=== PATIENT | male | born 1995 | race African-American/Black ===

== ENCOUNTER 2020-10-27 10:28 | Emergency (ER) | payer MEDICAID ==
[~2020-10-27] VITALS: Ht 175.3 cm; Wt 55.0 kg
[2020-10-27] MEDS ORDERED: ONDANSETRON HCL 4MG/2ML INJ IV STA (10:43)
[2020-10-27] MEDS ORDERED: MORPHINE SULFATE 4 MG/ML CPJ (NOT FOR IM USE) IV STA (10:43)
[2020-10-27 11:13] LABS: CLARITY URINE CLEAR (CLEAR); COLOR URINE DARK YELLOW (YELLOW); HEMATOCRIT. 54.9 % (42.0-52.0); HEMOGLOBIN. 18.8 g/dL (14.0-18.0); KETONES URINE 1+ (NEGATIVE); LEUKOCYTE ESTERASE URINE 1+ (NEGATIVE); MEAN CORPUSCULAR HEMOGLOBIN 32.4 pg (28.0-32.0); MEAN CORPUSCULAR VOLUME 94.5 fL (80.0-94.0); MEAN PLATELET VOLUME 9.9 fl (7.4-10.4); NITRITE URINE NEGATIVE (NEGATIVE); OCCULT BLOOD URINE NEGATIVE (NEGATIVE); PLATELET 170 x1000/uL (130-400); PROTEIN URINE 1+ (NEGATIVE); RED BLOOD CELL COUNT 5.81 mill/uL (4.7-6.1); RED CELL DISTRIBUTION WIDTH 13.1 % (11.6-14.6); SPECIFIC GRAVITY URINE 1.036 (1.005-1.030)
[2020-10-27 11:19] LABS: CHLORIDE 103 mEq/L (98-107)
[2020-10-27 11:25] LABS: INR 1.1; PROTHROMBIN TIME 11.7 sec (9.6-11.0)
[2020-10-27 11:52] LABS: PLATELET ESTIMATE NORMAL
[2020-10-27] MEDS ORDERED: ONDA4TAB5 MT (12:06)
[2020-10-27] MEDS ORDERED: NITR100C MT (12:06)
[2020-10-27] MEDS ORDERED: TOPUD MT (12:06)
[2020-10-27 12:22] VITALS: BP 125/79
== END 2020-10-27 12:27 | disposition home or self-care (01) ==
LOC: ER 10:38
DX: N39.0 Urinary tract infection, site not specified (principal)
CPT/HCPCS: 36415; 74176; 80053; 81003; 83690; 85025; 85610; 93005; 96374; 96375; 99285; J2270; J2405

== ENCOUNTER 2021-01-10 15:46 | Inpatient (IN) | payer MEDICAID, OTHER ==
[~2021-01-10] VITALS: Ht 180.3 cm; Wt 65.8 kg
[2021-01-10] MEDS ORDERED: HALOPERIDOL LACTATE 5MG/ML VIAL IM ONE ×3 (16:15→22:30)
[2021-01-10] MEDS ORDERED: SODIUM CHLORIDE 0.9% 1,000 ML IV ONE ×2 (16:15→22:30)
[2021-01-10] MEDS ORDERED: MORPHINE SULFATE 2 MG/ML CPJ (NOT FOR IM USE) IV ONE (16:15)
[2021-01-10 16:41] LABS: CHLORIDE 108 mEq/L (98-107)
[2021-01-10 17:16] LABS: BASOPHILS % 0.7 % (0.0-2.0); EOSINOPHILS % 0.1 % (0.0-5.0); HEMOGLOBIN. 18.2 g/dL (14.0-18.0); LYMPHOCYTES % 19.5 % (20.0-50.0); MEAN CORPUSCULAR VOLUME 95.2 fL (80.0-94.0); MEAN PLATELET VOLUME 10.5 fl (7.4-10.4); MONOCYTES % 9.1 % (2.0-8.0); NEUTROPHILS % 70.6 % (40.0-76.0); PLATELET 170 x1000/uL (130-400); RED BLOOD CELL COUNT 5.36 mill/uL (4.7-6.1); RED CELL DISTRIBUTION WIDTH 13.1 % (11.6-14.6)
[2021-01-10] MEDS ORDERED: METOCLOPRAMIDE HCL 10MG TABLET PO ONE (18:30)
[2021-01-10] MEDS ORDERED: MORPHINE SULFATE 4 MG/ML CPJ (NOT FOR IM USE) IV ONE (22:30)
[2021-01-11 11:19] VITALS: BP 121/63
[2021-01-11] MEDS ORDERED: ONDA4TAB5 PO (11:54)
[2021-01-11 12:00] VITALS: BP 121/63
[2021-01-11] MEDS ORDERED: HYDROCODONE/ACETAMINOPHEN 5/325MG TABLET PO PRN (12:30)
[2021-01-11] MEDS ORDERED: POTASSIUM CHLORIDE 20MEQ TABLET SR PO NR (12:30)
[2021-01-11] MEDS ORDERED: PANTOPRAZOLE 40MG DR TABLET PO SCH (13:15)
[2021-01-11] MEDS ORDERED: ONDANSETRON HCL 4MG/2ML INJ IV PRN (13:15)
[2021-01-11 16:00] VITALS: BP 120/79
[2021-01-11] MEDS ORDERED: METOCLOPRAMIDE HCL 10MG/2ML VIAL IV SCH (18:00)
[2021-01-11 20:00] VITALS: BP 112/65
[2021-01-11 20:26] VITALS: BP 112/65
== END 2021-01-11 20:26 | disposition home or self-care (01) | DRG 249 ==
LOC: ER 15:46 → 6EST 22:55 → ENRESERV 01-11 08:05
PROVIDERS: ADMIT Internal Medicine; ATTEND Internal Medicine
DX: R11.2 Nausea with vomiting, unspecified (principal); E87.8 Other disorders of electrolyte and fluid balance, not elsewhere classified; E83.52 Hypercalcemia; F12.90 Cannabis use, unspecified, uncomplicated; E87.6 Hypokalemia; F17.210 Nicotine dependence, cigarettes, uncomplicated; Z71.51 Drug abuse counseling and surveillance of drug abuser; K29.70 Gastritis, unspecified, without bleeding
CPT/HCPCS: 36415; 76700; 80053; 85025; 99285; J1630; J2270; J2765; J7030; J8597

== ENCOUNTER 2021-01-13 03:47 | Emergency (ER) | payer MEDICAID ==
[~2021-01-13] VITALS: Ht 180.3 cm; Wt 107.0 kg
[~2021-01-13 03:47] MED LIST: ONDA4TAB5 PO
[2021-01-13 04:50] VITALS: BP 122/81
[2021-01-13] MEDS ORDERED: MAGNESIUM/ALUMINUM HYDROXIDE/SIMETHICONE 30ML UDC PO STA (04:58)
[2021-01-13] MEDS ORDERED: ONDANSETRON 4MG ODT PO ONE (05:00)
[2021-01-13] MEDS ORDERED: ONDA4TAB5 MT (05:10)
[2021-01-13] MEDS ORDERED: PANT40SU MT (05:10)
== END 2021-01-13 05:45 | disposition home or self-care (01) ==
LOC: ER 03:47
DX: F12.188 Cannabis abuse with other cannabis-induced disorder (principal); K29.70 Gastritis, unspecified, without bleeding; F12.10 Cannabis abuse, uncomplicated
CPT/HCPCS: 99283; Q0162

== ENCOUNTER 2021-01-13 14:59 | Emergency (ER) | payer MEDICAID ==
[~2021-01-13] VITALS: Ht 177.8 cm; Wt 73.0 kg
[~2021-01-13 14:59] MED LIST changes: +ONDA4TAB5 MT; +PANT40SU MT
[2021-01-13 17:33] LABS: HEMATOCRIT. 50.8 % (42.0-52.0); HEMOGLOBIN. 18.3 g/dL (14.0-18.0); MEAN CORPUSCULAR HEMOGLOBIN 33.2 pg (28.0-32.0); MEAN CORPUSCULAR VOLUME 92.4 fL (80.0-94.0); MEAN PLATELET VOLUME 9.1 fl (7.4-10.4); PLATELET 195 x1000/uL (130-400); RED CELL DISTRIBUTION WIDTH 13.2 % (11.6-14.6)
[2021-01-13 17:37] LABS: CHLORIDE 103 mEq/L (98-107)
[2021-01-13 17:48] LABS: PLATELET ESTIMATE NORMAL
[2021-01-13 18:16] VITALS: BP 121/71
[2021-01-13 18:20] LABS: CLARITY URINE CLEAR (CLEAR); COLOR URINE YELLOW (YELLOW); KETONES URINE 2+ (NEGATIVE); LEUKOCYTE ESTERASE URINE NEGATIVE (NEGATIVE); NITRITE URINE NEGATIVE (NEGATIVE); OCCULT BLOOD URINE NEGATIVE (NEGATIVE); PH URINE 5.5 (4.5-8.0); PROTEIN URINE NEGATIVE (NEGATIVE); SPECIFIC GRAVITY URINE 1.018 (1.005-1.030); UROBILINOGEN URINE 0.2 E.U./dL (0.2-1.0)
== END 2021-01-13 18:18 | disposition home or self-care (01) ==
LOC: ER 14:59
DX: R10.31 Right lower quadrant pain (principal); F12.10 Cannabis abuse, uncomplicated
CPT/HCPCS: 36415; 80053; 81003; 85025; 99283